=== PATIENT | female | born 1990 | race Hispanic/Latino ===

== ENCOUNTER 2021-10-23 19:36 | Observation (INO) | payer OTHER, SELFPAY ==
--- NOTE | ~2021-10-23 | CT_ITS ---
EXAMINATION: CT brain wo con EXAM DATE: 10/24/2021 02:07 INDICATION: New onset facial drooping. TECHNIQUE: Spiral CT of the head was performed without contrast. Axial, coronal and sagittal images were reviewed. The dose-length product (DLP) for this examination was 605.33 mGy-cm. The exposure w as tailored according to patient size, and iterative reconstruction (ASIR) was used as additional dos e reduction technique. Comparison is made to prior examination from 10/23/2021. FINDINGS: There is no acute intraparenchymal hemorrhage. No evidence of intraparenchymal brain mass lesion. No evidence of acute infarction. There is no mass effect or midline shift. The ventricles are normal in size. There are no extra-axial collections. There are no acute calvarial fractures. T he orbits are unremarkable. Soft tissue is unremarkable. The visualized sinuses and mastoid air pieter ls are well aerated. IMPRESSION: No acute intracranial findings. Reviewed, dictated and finalized at location B. EMS TEST ANALYST
--- NOTE | ~2021-10-23 | MR_ITS ---
EXAMINATION: MR brain/brain stem wo con EXAM DATE: 10/24/2021 08:12 INDICATION: Speech difficulty, headache. Left-sided facial droop, left posterior headache. 33 weeks p regnant. TECHNIQUE: Magnetic resonance imaging (MRI) of the brain/brain stem obtained without contrast. Perlitaitt al T1, axial diffusion, gradient echo (T2*), T1, T2, FLAIR sequences obtained. There is no prior st udy for comparison. FINDINGS: There are no areas of restricted diffusion to suggest acute infarction. There is no acute hemorrhage seen on the T2*, a hemosiderin sensitive sequence. No intraparenchymal brain mass. The ve ntricles are normal in size. There are no extra-axial collections. Flow voids are seen in the cereb ral arteries on the T2-weighted sequences consistent with their expected patency. The orbits are unr emarkable. Soft tissue is unremarkable. IMPRESSION: Normal brain MRI examination. Reviewed, dictated and finalized at location B. N OPERATOR
--- NOTE | ~2021-10-23 | CT_ITS ---
EXAMINATION: CT brain wo con DATE: 10/23/2021 19:59 INDICATION: Speech deficit. TECHNIQUE: Computed tomography (CT) of the head was performed without intravenous contrast. The mA wa s adjusted according to patient size. Iterative reconstruction technique was employed. The dose-lengt h product was 605.33 mGy-cm. COMPARISON: None FINDINGS: There is no intracranial hemorrhage, acute infarction, or abnormal intracranial mass lesion . The ventricles are normal in size. There is mild mucosal thickening in the paranasal sinuses. The o rbits are normal. The mastoid air cells are normal. IMPRESSION: 1. Normal brain. Reviewed, dictated and finalized at location A. T LINE SUPERVISOR IMPRESSION: 1. Normal brain.
--- NOTE | ~2021-10-23 | CT_ITS ---
EXAMINATION: CTA chest PE protocol EXAM DATE: 10/24/2021 04:49 INDICATION: Central chest pain. TECHNIQUE: Spiral CTA of the chest (pulmonary arteries) was performed with 100 cc Omnipaque 350 intr avenous contrast injection. Images were acquired during the pulmonary arterial phase. Coronal maxi mum intensity projection 3D-reconstructions were created by the technologist on dedicated workstation . Axial, coronal and sagittal reformatted images were reviewed. The dose-length product (DLP) for t his examination was 649.80 mGy-cm. The exposure was tailored according to patient size (auto mA exp osure control), and iterative reconstruction (ASIR) was used as additional dose reduction technique. There is no prior study for comparison. FINDINGS: Pulmonary arteries are well opacified and without intraluminal filling defects. No thora cic aortic dissection. The lungs are clear. There are no pleural or pericardial effusions. Trach eobronchial tree is patent. There is no mediastinal, hilar or axillary lymphadenopathy. There is no pneumothorax. Heart normal in size. No evidence of coronary arterial calcification. Upper abd omen is unremarkable. There is thoracic spondylosis without osteoblastic or osteolytic lesions iden tified. IMPRESSION: 1. Unremarkable CT pulmonary exam. Reviewed, dictated and finalized at location B. T WASHER
--- NOTE | 2021-10-23 19:47 | ECG_ITS ---
Measurements Intervals [place] Rate: 76 P: 8 HI: 153 QRS: 37 QRSD: 105 T: 43 QT: 373 QTc: 420 Interpretive Statements SINUS RHYTHM EARLY PRECORDIAL R/S TRANSITION BORDERLINE ECG Electronically Signed On 10-24-2021 6:26:44 FACE PAINTER by Jese Prakash D.O.
[2021-10-23 20:17] VITALS: BP 114/65; PULSE 91; RESP 16; TEMP 36.3; O2SAT 100
[2021-10-23 20:30] VITALS: BP 106/64; PULSE 96; RESP 16; O2SAT 100
--- NOTE | 2021-10-23 20:34 | ED.GENADULT ---
HPI - General Adult General Chief complaint: Neuro Symptoms/Deficit Stated complaint: headache, difficulty speaking Time Seen by Provider: 10/23/21 19:47 Source: patient and RN notes reviewed History of Present Illness HPI narrative: Patient is a 31 y/o female complaining of left occipital headache starting about 10:00 PM last night. She describes her headache as throbbing and rates it as 8/10. There is no alleviating or exacerbating factor. She has no vomiting, neck pain, focal weakness or numbness. She is able to ambulate. She has some mouth numbness and difficulty with speaking which started about 1:00 PM today. Of note, she is about 33 week . Patient is non Israeli speaking and daughter provided translation. Related Data Allergies Allergy/AdvReac Type Severity Reaction Status Date / Time No Known Allergies Allergy Unverified 07/13/16 02:59 Review of Systems Constitutional: Constitutional: Denies chills, Denies fever(s), Reports headache(s) and Denies weakness Eyes: Eyes: Denies blurry vision ENT: Reports headache(s) and Denies neck pain Cardiovascular: Cardiovascular: Denies chest pain and Denies dyspnea Respiratory: Respiratory: Denies cough and Denies dyspnea Gastrointestinal: Gastrointestinal: Denies abdominal pain, Denies diarrhea, Denies nausea and Denies vomiting Genitourinary: Genitourinary: Denies hematuria and Denies dysuria Musculoskeletal: Musculoskeletal: Denies back pain and Denies neck pain Neurologic: Reports Abnormal speech present, Reports headache(s), Reports numbness and Denies weakness Exam Const: General: no acute distress and well developed Orientation/consciousness: oriented to person, oriented to place, oriented to time and patient oriented x3 HENMT: Head: normocephalic Ears: external ears normal General nose exam: Normal external nose present Eyes: General: appearance normal, both eyes and all related structures Conjunctivae: conjunctivae normal Neck: Neck: normal visual inspection and full ROM Chest: Chest palpation & inspection: normal inspection of the chest and no tenderness Resp: Effort & Inspection: normal respiratory effort Auscultation: clear to auscultation bilaterally Cardio: Rate: regular rate Rhythm: regular rhythm GI: GI Palp: No abdominal tenderness and Yes Soft to palpation Skin: General skin exam: normal color and turgor normal Neuro: General: oriented to person, oriented to place, oriented to time and patient oriented x3 Cognition (Neuro): normal cognition Extrem: General: normal to inspection, full ROM and no pedal edema Psych: Appearance: grossly normal Mental Status: mental status grossly normal Affect: normal affect Course Reevaluation(s) Reevaluation #1: Rechecked. Patient still complains of headache and difficulty with speech. Date: 10/23/21 Time: 22:09 Consultations Consultation #1: Discussed with Dr. Ratliff, who agrees to admit. Date: 10/23/21 Time: 22:15 Vital Signs Vital signs: Vital Signs Temperature 36.3 C L 10/23/21 20:17 Pulse Rate 91 10/23/21 20:17 Respiratory Rate 16 10/23/21 20:17 Blood Pressure 114/65 10/23/21 20:17 Pulse Oximetry 100 10/23/21 20:17 Temperature 36.7 C 10/24/21 00:45 Pulse Rate 84 10/24/21 00:53 Respiratory Rate 18 10/24/21 00:45 Blood Pressure 124/77 10/24/21 00:53 Pulse Oximetry 100 10/24/21 01:46 Medical Decision Making MDM Narrative Medical decision making narrative: Stroke is considered as possible cause of patient's symptoms. However, she is not a candidate for tPA due to LKW greater than 4.5 hours and . CTA is not done due to low NIHSS. Vital Signs Vital Signs: Vital Signs Temperature 36.3 C L 10/23/21 20:17 Pulse Rate 91 10/23/21 20:17 Respiratory Rate 16 10/23/21 20:17 Blood Pressure 114/65 10/23/21 20:17 Pulse Oximetry 100 10/23/21 20:17 Temperature 36.7 C 10/24/21 00:45 Pulse Rate 84 10/24/21 00:53 Respiratory Rat
[2021-10-23 20:43] LABS: Basophils Percent Auto 0.3 % (0.2-1.2); Eosinophils Absolute Auto 0.2 K/mm3 (0-0.3); Eosinophils Percent Auto 2.1 % (0-4.4); Hematocrit 33.2 % (37.0-47.0); Hemoglobin 10.9 g/dL (12.0-15.0); Immature Granulocyte Absolute 0.05 K/mm3 (0.00-0.031); Immature Granulocyte Percent A 0.7 % (0-0.5); Lymphocytes Absolute Auto 1.36 K/mm3 (0.9-3.2); Lymphocytes Percent Auto 19.3 % (18.3-44.2); Mean Corpuscular HGB Conc 32.8 g/dl (32-36); Mean Corpuscular Hemoglobin 28.1 pg (26-34); Mean Corpuscular Volume 85.6 fl (80-100); Mean Platelet Volume 10.8 fl (7.4-10.4); Monocytes Absolute Auto 0.8 K/mm3 (0.1-0.6); Monocytes Percent Auto 11.2 % (2.6-8.5); Neutrophils Absolute Auto 4.7 K/mm3 (1.3-6.7); Neutrophils Percent Auto 66.4 % (45.5-73.1); Platelet Count Result 289 k/mm3 (150-375); Red Blood Count 3.88 M/mm3 (4.2-5.4); Red Cell Distribution Width 14.2 % (11.5-14.5); White Blood Count 7.1 K/mm3 (4.5-10.0)
[2021-10-23 20:53] LABS: Alanine Aminotransferase 49 U/L (4-35); Albumin Level 3.7 g/dL (3.5-5.1); Alkaline Phosphatase 131 U/L (38-126); Anion Gap 8 mmol/L (8-16); Aspartate Amino Transferase 83 U/L (14-36); Bilirubin,Total 0.6 mg/dL (0.2-1.3); Blood Urea Nitrogen 8 mg/dL (7-17); Calcium 9.5 mg/dL (8.4-10.2); Carbon Dioxide 21 mmol/L (22-30); Chloride 108 mmol/L (98-107); Estimated Glomerular Filt Rate > 60; Glucose 96 mg/dL (65-110); Potassium 3.6 mmol/L (3.4-5.0); Sodium 137 mmol/L (137-145)
[2021-10-23 20:54] LABS: INR 0.9; Prothrombin Time 12.4 Seconds (11.1-14.7)
[2021-10-23 20:55] LABS: Partial Thromboplastin Time 28.3 SECONDS (22.3-36.8)
[2021-10-23] MEDS: ACETAMINOPHEN/BUTALBITAL/CAFFEINE 325-50-40 MG TABLET (FIORICET) 1 TAB PO (21:20)
[2021-10-23 21:30] VITALS: BP 99/50; PULSE 83; RESP 16; O2SAT 99
[2021-10-23 21:43] LABS: Add Urine Microscopic? YES; Amorphous Sediment Urine Few; Appearance Urine Cloudy (Clear); Bacteria Urine Trace /hpf; Bilirubin Urine Negative (Negative); Blood Urine Negative (Negative); Calcium Oxalate Crystals Urine Present /hpf; Color Urine Yellow (Yellow); Glucose Urine UA Negative (Negative); Ketones Urine Negative (Negative); Leukocyte Esterase Ur Trace LEU/UL (Negative); Mucus Urine Rare /lpf; Nitrate Urine Negative (Negative); Protein Urine 1+ mg/dL (Negative); Specific Grav Ur 1.017 (1.001-1.035); Squamous Epithelial Cell Urine Many /hpf (Few)
[2021-10-23 22:22] VITALS: BP 110/63; PULSE 72; RESP 16; TEMP 36.3; O2SAT 98
[2021-10-23 22:51] LABS: EDCOVIDSCREEN Negative (Negative)
[2021-10-23 23:18] VITALS: BP 107/61; PULSE 73
[2021-10-23 23:31] VITALS: BP 106/59; PULSE 74
[2021-10-24] VITALS (112 sets, daily range): BP systolic 73–124; BP diastolic 35–83; PULSE 77–109; RESP 16–20; TEMP 36.5–37.1; O2SAT 95–100; BMI 41.6
[2021-10-24] MEDS: LACTATED RINGERS 1,000 ML 75 ML IV CONT ×2 (00:12→11:57)
[2021-10-24] MEDS: MAGNESIUM SULF 4 GM/WATER100ML 4 GM/100 ML BAG IVPB (00:16)
[2021-10-24] MEDS: SUMAtriptan SUCCINATE 25 MG TABLET 100 MG PO (00:19)
[2021-10-24] MEDS: MAGNESIUM SULF 20GM/WATER500ML 500 ML 50 MG IV CONT ×2 (00:48→11:57)
--- NOTE | 2021-10-24 01:35 | ECG_ITS ---
Measurements Intervals [place] Rate: 84 P: 20 IA: 148 QRS: 31 QRSD: 100 T: 37 QT: 384 QTc: 456 Interpretive Statements SINUS RHYTHM NORMAL ECG Electronically Signed On 10-24-2021 6:31:55 SHIRT OPERATOR by Jese Prakash D.O.
--- NOTE | 2021-10-24 01:46 | PC.NURSE ---
0140- called per 's orders for consult. Informed pt came in thru the ER last night for c/o headache. Pt has received fioricet and imitrex for headache without any relief. Pt was started on magnesium sulfate and since c/o chest pain, numbness around the mouth which pt states she did have in the ER, pt states she feels like she can not close her left eye all the way and has an uneven smile. Orders received for stat repeat CT of the brain. Informed troponin levels are being drawn and stat EKG ordered by .
[2021-10-24 01:50] LABS: D Dimer 1.64 ug/mL (<0.48)
[2021-10-24 02:12] LABS: Troponin I < 0.012 ng/mL (0.000-0.034)
--- NOTE | 2021-10-24 02:16 | PC.NURSE ---
0130- called,informed pt is now c/o not being able to close her left eye all the way. Pt's smile is uneven, right side rises and left side does not move. Orders received to draw troponin levels, obtain stat EKG, and consult hospitalist.
--- NOTE | 2021-10-24 02:51 | PM.IMCN ---
Assessment and Plan Assessment and plan (1) Headache: Qualifiers: Headache chronicity pattern: unspecified pattern Headache type: unspecified Intractability: not intractable Qualified Code(s): R51.9 - Headache, unspecified Code(s): R51.9 - Headache, unspecified Status: Acute (2) Difficulty with speech: Code(s): R47.9 - Unspecified speech disturbances Status: Acute (3) Left-sided Dietrich's palsy: Code(s): G51.0 - Dietrich's palsy Status: Acute (4) Chest pain: Code(s): R07.9 - Chest pain, unspecified Status: Acute (5) Elevated d-dimer: Code(s): R79.89 - Other specified abnormal findings of blood chemistry Status: Acute (6) Migraine: Code(s): G43.909 - Migraine, unspecified, not intractable, without status migrainosus Status: Acute Additional Plan # headache occipital in origin different from her usual migraine headaches. However suspect migraine related headache given Fioricet and Imitrex with some relieve. Will order Imitrex 50 q.6 hours p.r.n.. Morphine IV p.r.n. for severe headache # facial drooping CT head is negative. Clinical examination suggestive of acute Dietrich's palsy history suggests symptoms started since she has 1-2 days. # left-sided acute Dietrich's palsy will start her on steroid prednisone 60 mg daily along with acyclovir 400 mg 5 times daily. Duration of symptoms has been 1-2 days. MRI brain has been ordered in place which will be done tomorrow. Will also consult Neurology for any further recommendation # chest pain unclear etiology. EKG done which is within normal limits. Troponin came back negative. No personal or family history of premature coronary artery disease. Her D-dimer did come back elevated and with being a thrombophilic condition, possibility of PE remains. Discussed this finding with the attending physician and decision made to do a CTA to rule this out. # elevated D-dimer see above # history of migraine in the past not on any medication previously # 33 weeks Thanks for the consultation. Hospitalist team will continue to follow. HPI Data of Consult Consult date: 10/24/21 Requesting Physician: Luis Ratliff MD Primary Care Provider: René Alexis, COUNTER WEIGHER Consult Narrative Narrative: Rossi Sutton is a 31 year old female Who presents to the ED yesterday with left-sided occipital headache which started day before yesterday at night. She describes her headache as severe and rated 10 x 10 in the beginning radiating forward to her left side of her head and is throbbing in quality. She tried to sleep that night however was not able to sleep because of the ED. she denies having any nausea or vomiting or any visual changes with. She did not take any medication to alleviate her pain. On Friday continued to have the pain and hence came to the ER for evaluation in the evening. She states that along with the pain she was also having some numbness and tingling in her facial area which she describes it to be again later in the evening on Friday. Most of the history is interpreted by her daughter who is at the bedside As she on the speaks Indonesian . In the ED she was evaluated with a CT head which came back negative. Of note she is 33 weeks and hence was admitted to the labor and delivery for further monitoring. While she was in the labor and delivery she had worsening of her headache for which she received 1 dose of Fioricet followed by 1 dose of Imitrex. She also complained of having chest pain which is in the upper retrosternal area for which an EKG was done which showed normal sinus rhythm. This was further evaluated with of blood test of troponin which came back negative along with D-dimer which came back elevated she denies any ongoing leg swelling. Her vitals has been stable throughout this. With no hypoxia or tachycardia. She does report history of migraines in the past but the quality
[2021-10-24] MEDS: ACYCLOVIR 400 MG TABLET PO ×6 (03:23→20:47)
[2021-10-24 05:34] LABS: Basophils Percent Auto 0.1 % (0.2-1.2); Eosinophils Absolute Auto 0.1 K/mm3 (0-0.3); Eosinophils Percent Auto 1.6 % (0-4.4); Hematocrit 32.7 % (37.0-47.0); Hemoglobin 10.8 g/dL (12.0-15.0); Immature Granulocyte Absolute 0.05 K/mm3 (0.00-0.031); Immature Granulocyte Percent A 0.7 % (0-0.5); Lymphocytes Absolute Auto 1.38 K/mm3 (0.9-3.2); Lymphocytes Percent Auto 18.9 % (18.3-44.2); Mean Corpuscular Hemoglobin 27.6 pg (26-34); Mean Corpuscular Volume 83.6 fl (80-100); Mean Platelet Volume 10.6 fl (7.4-10.4); Monocytes Absolute Auto 0.5 K/mm3 (0.1-0.6); Monocytes Percent Auto 6.4 % (2.6-8.5); Neutrophils Absolute Auto 5.3 K/mm3 (1.3-6.7); Neutrophils Percent Auto 72.3 % (45.5-73.1); Platelet Count Result 263 k/mm3 (150-375); Red Blood Count 3.91 M/mm3 (4.2-5.4); White Blood Count 7.3 K/mm3 (4.5-10.0)
[2021-10-24 05:44] LABS: Alanine Aminotransferase 51 U/L (4-35); Albumin Level 3.3 g/dL (3.5-5.1); Alkaline Phosphatase 142 U/L (38-126); Anion Gap 10 mmol/L (8-16); Aspartate Amino Transferase 77 U/L (14-36); Bilirubin,Total 0.6 mg/dL (0.2-1.3); Blood Urea Nitrogen 6 mg/dL (7-17); Calcium 8.2 mg/dL (8.4-10.2); Carbon Dioxide 19 mmol/L (22-30); Chloride 107 mmol/L (98-107); Estimated CRCL calculation 197 ml/min; Estimated Glomerular Filt Rate > 60; Glucose 100 mg/dL (65-110); Potassium 3.5 mmol/L (3.4-5.0); Sodium 136 mmol/L (137-145); Uric Acid 4.3 mg/dL (2.5-7.5)
[2021-10-24] MEDS: SUMAtriptan SUCCINATE 25 MG TABLET 50 MG PO ×3 (06:39→20:47)
[2021-10-24] MEDS: predniSONE 20 MG TABLET 60 MG PO (08:58)
--- NOTE | 2021-10-24 09:16 | PM.IMHP ---
H&P: HPI History of Present Illness Date/Time: 10/24/21 09:16 31 y/o at 33 weeks gestation with a 2 day history of headache. She has a history of migraine. Good movement, no contractions, no abdominal pain. Developed left sided facial droop last night. The clinical picture was confused at the time of her admission. She was admitted to L&D for possible preeclampsia, started on Magnesium sulfate. However, she was then worked up for possible stroke. Hospitalist was consulted. CT of head and, most recently, MRI of head have been unremarkable. Had some chest tightness, and CT of chest was normal. Now her headache has resolved and her left facial droop has become more pronounced. Looks much more likely simply to represent a Dietrich's Palsy now. Chief Complaint: Headache Review of Systems Review of Systems: All systems reviewed & are unremarkable except as noted in HPI and below PMFSH Past Medical History Medical History Migraine Meds Home Medications and Allergies Home Medications Medication Instructions Recorded Confirmed Type No Home Medications 10/24/21 10/24/21 History Allergies Allergy/AdvReac Type Severity Reaction Status Date / Time No Known Allergies Allergy Unverified 07/13/16 02:59 Vital Signs Vital Signs - 24 hr 10/23/21 20:17 10/23/21 20:30 10/23/21 21:30 Temperature 36.3 C L Pulse Rate 91 96 83 Respiratory Rate 16 16 16 Blood Pressure 114/65 106/64 99/50 L Pulse Oximetry 100 100 99 10/23/21 22:22 10/23/21 23:18 10/23/21 23:31 Temperature 36.3 C L Pulse Rate 72 73 74 Respiratory Rate 16 Blood Pressure 110/63 107/61 106/59 L Pulse Oximetry 98 10/24/21 00:16 10/24/21 00:17 10/24/21 00:23 Temperature 36.5 C Pulse Rate 77 Respiratory Rate 16 Blood Pressure 102/41 L Pulse Oximetry 97 10/24/21 00:24 10/24/21 00:25 10/24/21 00:26 Temperature 36.7 C Pulse Rate 102 H 78 Respiratory Rate 20 Blood Pressure 83/67 L 106/59 L Pulse Oximetry 10/24/21 00:28 10/24/21 00:30 10/24/21 00:33 Temperature Pulse Rate 81 Respiratory Rate Blood Pressure 111/62 Pulse Oximetry 98 97 10/24/21 00:36 10/24/21 00:38 10/24/21 00:41 Temperature Pulse Rate 83 89 Respiratory Rate Blood Pressure 110/63 105/59 L Pulse Oximetry 98 10/24/21 00:43 10/24/21 00:45 10/24/21 00:46 Temperature 36.7 C Pulse Rate 83 Respiratory Rate 18 Blood Pressure 106/83 Pulse Oximetry 96 10/24/21 00:48 10/24/21 00:53 10/24/21 00:58 Temperature Pulse Rate 84 Respiratory Rate Blood Pressure 124/77 Pulse Oximetry 97 97 96 10/24/21 01:00 10/24/21 01:03 10/24/21 01:08 Temperature 36.8 C Pulse Rate Respiratory Rate 18 Blood Pressure Pulse Oximetry 97 95 10/24/21 01:13 10/24/21 01:14 10/24/21 01:19 Temperature Pulse Rate Respiratory Rate Blood Pressure Pulse Oximetry 96 99 97 10/24/21 01:24 10/24/21 01:29 10/24/21 01:30 Temperature Pulse Rate Respiratory Rate 18 Blood Pressure Pulse Oximetry 98 98 10/24/21 01:38 10/24/21 01:43 10/24/21 01:44 Temperature Pulse Rate Respiratory Rate Blood Pressure Pulse Oximetry 97 100 100 10/24/21 01:45 10/24/21 01:46 10/24/21 02:08 Temperature Pulse Rate Respiratory Rate Blood Pressure Pulse Oximetry 100 100 100 10/24/21 02:10 10/24/21 02:13 10/24/21 02:16 Temperature Pulse Rate 87 86 Respiratory Rate Blood Pressure 116/46 L 120/64 Pulse Oximetry 100 10/24/21 02:18 10/24/21 02:23 10/24/21 02:28 Temperature Pulse Rate Respiratory Rate Blood Pressure Pulse Oximetry 100 100 99 10/24/21 02:31 10/24/21 02:33 10/24/21 02:38 Temperature Pulse Rate 86 Respiratory Rate Blood Pressure 114/59 L Pulse Oximetry 100 99 10/24/21 02:43 10/24/21 02:46 10/24/21 02:48 Temperature
--- NOTE | 2021-10-24 11:32 | WPDNEURCNPN ---
Assessment and Plan Additional Plan 1. 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, routine CBC is normal but her hepatic enzymes are elevated the blood sugar is a 96 an MRI of the brain is negative psoas the chest CTA and she has already been started on prednisone in addition to acyclovir which will be continued as such Consult date: 10/24/21 HPI: Rossi Sutton is a 31 year old female 4 para 3 at 33 weeks of gestation with 2 days history of headache that is migraine developed the left-sided facial droop and neuro consultation was obtained for that particular reason patient has not been on any specific medication prior to the hospitalization and noted Марина afebrile, she does have ongoing history of not intractable migraine. Her headaches are usually located in the occipital area neuro consultation was obtained because of the left-sided facial droop Review of Systems Review of Systems: All systems reviewed & are unremarkable except as noted in HPI and below PMFSH Past Medical History Medical History Migraine Meds Home Medications and Allergies Home Medications Medication Instructions Recorded Confirmed Type No Home Medications 10/24/21 10/24/21 History Allergies Allergy/AdvReac Type Severity Reaction Status Date / Time No Known Allergies Allergy Unverified 07/13/16 02:59 Vital Signs Vital Signs - 24 hr 10/23/21 20:17 10/23/21 20:30 10/23/21 21:30 Temperature 36.3 C L Pulse Rate 91 96 83 Respiratory Rate 16 16 16 Blood Pressure 114/65 106/64 99/50 L Pulse Oximetry 100 100 99 10/23/21 22:22 10/23/21 23:18 10/23/21 23:31 Temperature 36.3 C L Pulse Rate 72 73 74 Respiratory Rate 16 Blood Pressure 110/63 107/61 106/59 L Pulse Oximetry 98 10/24/21 00:16 10/24/21 00:17 10/24/21 00:23 Temperature 36.5 C Pulse Rate 77 Respiratory Rate 16 Blood Pressure 102/41 L Pulse Oximetry 97 10/24/21 00:24 10/24/21 00:25 10/24/21 00:26 Temperature 36.7 C Pulse Rate 102 H 78 Respiratory Rate 20 Blood Pressure 83/67 L 106/59 L Pulse Oximetry 10/24/21 00:28 10/24/21 00:30 10/24/21 00:33 Temperature Pulse Rate 81 Respiratory Rate Blood Pressure 111/62 Pulse Oximetry 98 97 10/24/21 00:36 10/24/21 00:38 10/24/21 00:41 Temperature Pulse Rate 83 89 Respiratory Rate Blood Pressure 110/63 105/59 L Pulse Oximetry 98 10/24/21 00:43 10/24/21 00:45 10/24/21 00:46 Temperature 36.7 C Pulse Rate 83 Respiratory Rate 18 Blood Pressure 106/83 Pulse Oximetry 96 10/24/21 00:48 10/24/21 00:53 10/24/21 00:58 Temperature Pulse Rate 84 Respiratory Rate Blood Pressure 124/77 Pulse Oximetry 97 97 96 10/24/21 01:00 10/24/21 01:03 10/24/21 01:08 Temperature 36.8 C Pulse Rate Respiratory Rate 18 Blood Pressure Pulse Oximetry 97 95 10/24/21 01:13 10/24/21 01:14 10/24/21 01:19 Temperature Pulse Rate Respiratory Rate Blood Pressure Pulse Oximetry 96 99 97 10/24/21 01:24 10/24/21 01:29 10/24/21 01:30 Temperature Pulse Rate Respiratory Rate 18 Blood Pressure Pulse Oximetry 98 98 10/24/21 01:38 10/24/21 01:43 10/24/21 01:44 Temperature Pulse Rate Respiratory Rate Blood Pressure Pulse Oximetry 97 100 100 10/24/21 01:45 10/24/21 01:46 10/24/21 02:08 Temperature Pulse Rate Respiratory Rate Blood Pressure Pulse Oximetry 100 100 100 10/24/21 02:10 10/24/21 02:13 10/24/21 02:16 Temperature Pulse Rate 87 86 Respiratory Rate Blood Pressure 116/46 L 120/64 Pulse Oximetry 100 10/24/21 02:18 10/24/21 02:23 10/24/21 02:28 Temperature Pulse Rate Respiratory Rate Blood Pressure Pulse Oximetry 100 100 99 10/24/21 02:31 10/24/21 02:33 10/24/21 02:38 Temperature Pulse Rate 86 Respiratory Rate Blood Pressure 114/5
[2021-10-25 04:23] LABS: Collection Time Urine 24 HOURS
[2021-10-25 04:33] LABS: Creatinine Urine 37.6 mg/dL; Patient Weight 242 Lbs
[2021-10-25 04:52] LABS: Total Volume 24 Hour Urine 3000 ml
[2021-10-25 05:00] LABS: Specific Gravity Ur 1.016
[2021-10-25] MEDS: SUMAtriptan SUCCINATE 25 MG TABLET 50 MG PO ×2 (05:19→08:51)
[2021-10-25 05:22] VITALS: BP 101/48; PULSE 76
[2021-10-25 06:00] LABS: Creatinine Clearance Urine 160.3 ml/min (75-125); Total Volume 24 Hour Urine 3000 ml
[2021-10-25 06:10] LABS: Total Protein Urine Random 24 mg/dL
[2021-10-25 06:18] LABS: Total Protein Urine 24 Hr 720 mg/24hr (28-141)
[2021-10-25 06:20] LABS: Basophils Percent Auto 0.3 % (0.2-1.2); Eosinophils Percent Auto 0.3 % (0-4.4); Hematocrit 33.8 % (37.0-47.0); Hemoglobin 10.7 g/dL (12.0-15.0); Immature Granulocyte Absolute 0.07 K/mm3 (0.00-0.031); Immature Granulocyte Percent A 0.9 % (0-0.5); Lymphocytes Absolute Auto 1.07 K/mm3 (0.9-3.2); Lymphocytes Percent Auto 13.5 % (18.3-44.2); Mean Corpuscular HGB Conc 31.7 g/dl (32-36); Mean Corpuscular Hemoglobin 27.6 pg (26-34); Mean Corpuscular Volume 87.3 fl (80-100); Mean Platelet Volume 10.8 fl (7.4-10.4); Monocytes Absolute Auto 0.5 K/mm3 (0.1-0.6); Monocytes Percent Auto 6.6 % (2.6-8.5); Neutrophils Absolute Auto 6.2 K/mm3 (1.3-6.7); Neutrophils Percent Auto 78.4 % (45.5-73.1); Platelet Count Result 281 k/mm3 (150-375); Red Blood Count 3.87 M/mm3 (4.2-5.4); Red Cell Distribution Width 14.4 % (11.5-14.5); White Blood Count 7.9 K/mm3 (4.5-10.0)
[2021-10-25 06:30] VITALS: RESP 18; TEMP 36.2
[2021-10-25 06:31] VITALS: BP 105/51; PULSE 68
[2021-10-25 06:36] LABS: Alanine Aminotransferase 79 U/L (4-35); Albumin Level 3.4 g/dL (3.5-5.1); Alkaline Phosphatase 132 U/L (38-126); Anion Gap 4 mmol/L (8-16); Aspartate Amino Transferase 118 U/L (14-36); Bilirubin,Total 0.6 mg/dL (0.2-1.3); Blood Urea Nitrogen 4 mg/dL (7-17); Calcium 8.2 mg/dL (8.4-10.2); Carbon Dioxide 22 mmol/L (22-30); Chloride 110 mmol/L (98-107); Estimated CRCL calculation 197 ml/min; Estimated Glomerular Filt Rate > 60; Glucose 122 mg/dL (65-110); Potassium 3.6 mmol/L (3.4-5.0); Sodium 136 mmol/L (137-145); Uric Acid 3.7 mg/dL (2.5-7.5)
[2021-10-25] MEDS: ACYCLOVIR 400 MG TABLET PO ×2 (08:51→12:24)
[2021-10-25] MEDS: predniSONE 20 MG TABLET 60 MG PO (08:51)
[2021-10-25 10:39] VITALS: BP 94/24; PULSE 83
--- NOTE | 2021-10-25 13:14 | PM.OBPNVD ---
OB - PN: Subj Subjective Date/time seen: 10/25/21 13:14 Headache has localized to left ear, neck, jaw and face. No swelling. No abdominal pain. Good movement. Imitrex does seem to help head. OB - PN: Obj Data Labs CBC & Chem 7: 10/25/21 05:01 10/25/21 05:01 Labs: Laboratory Results - last 24 hr 10/25/21 10/25/21 10/25/21 01:25 01:26 05:01 WBC 7.9 RBC 3.87 L Hgb 10.7 L Hct 33.8 L MCV 87.3 MCH 27.6 MCHC 31.7 L RDW 14.4 Plt Count 281 MPV 10.8 H Immature Gran % (Auto) 0.9 H Neut % (Auto) 78.4 H Lymph % (Auto) 13.5 L Emmet % (Auto) 6.6 Eos % (Auto) 0.3 Baso % (Auto) 0.3 Lymph # (Auto) 1.07 Emmet # (Auto) 0.5 Eos # (Auto) 0.0 Baso # (Auto) 0.0 Abs Immat Gran (auto) 0.07 H Absolute Neuts (auto) 6.2 Absolute Nucleated RBC 0.0 Nucleated RBC % 0.0 Sodium Potassium Chloride Carbon Dioxide Anion Gap BUN Creatinine Estim Creat Clear Calc Estimated GFR Glucose Uric Acid Calcium Total Bilirubin AST ALT Alkaline Phosphatase Total Protein Albumin U Random Total Protein 24 Ur 24 Hour Volume 3000 3000 Urine Creatinine 37.6 Creatinine Clearance 160.3 H Ur Total Protein 24 Hr 720 H 10/25/21 05:01 WBC RBC Hgb Hct MCV MCH MCHC RDW Plt Count MPV Immature Gran % (Auto) Neut % (Auto) Lymph % (Auto) Emmet % (Auto) Eos % (Auto) Baso % (Auto) Lymph # (Auto) Emmet # (Auto) Eos # (Auto) Baso # (Auto) Abs Immat Gran (auto) Absolute Neuts (auto) Absolute Nucleated RBC Nucleated RBC % Sodium 136 L Potassium 3.6 Chloride 110 H Carbon Dioxide 22 Anion Gap 4 L BUN 4 L Creatinine 0.40 L Estim Creat Clear Calc 197 Estimated GFR > 60 Glucose 122 H Uric Acid 3.7 Calcium 8.2 L Total Bilirubin 0.6 AST 118 H ALT 79 H Alkaline Phosphatase 132 H Total Protein 6.0 L Albumin 3.4 L U Random Total Protein Ur 24 Hour Volume Urine Creatinine Creatinine Clearance Ur Total Protein 24 Hr OB - PN A/P Plan Comments: A: IUP at 33 weeks with Dietrich's palsy, also with mildly elevated transaminases and 24 hour urine protein. P: Home to finish acyclovir, prednisone. F/u office next week for blood work. Review of Systems Review of Systems: All systems reviewed & are unremarkable except as noted in HPI and below Exam Narrative: AVSS I/O OK ABD soft, nontender, gravid. NST reactive. TOCO: no contractions. EXT nontender, no edema.
[2021-10-25 13:35] VITALS: BP 82/44; PULSE 82
[2021-10-25 13:37] VITALS: BP 100/71; PULSE 86
--- NOTE | 2021-11-19 11:52 | PM.OBDSVD ---
DS: Admitting Diagnosis Discharge Date 10/25/21 Admitting Diagnosis Headache IUP at 33 weeks DS: Discharge Diagnosis Discharge Diagnosis (1) Left-sided Dietrich's palsy: Code(s): G51.0 - Dietrich's palsy Status: Acute (2) : Code(s): Z34.90 - Encounter for supervision of normal , unspecified, unspecified trimester Status: Acute OB - DS: Summary OB Procedures : NST and Other OB Procedures Intrapartum: Other OB Procedures: : None Discharge Plan Discharge Attending physician on discharge: Dejan Guido Consulting providers: Mehran Pace ; [place] Mills ; Titi Bauman ; Jese Prakash ; Donaldo Ang V. Discharging Clinician: Luis Ratliff Anticipated Discharge Date/Time: 10/25/21 14:30 Patient Disposition: Home, Self-Care Activity: as tolerated Diet: regular Discharge Instructions: OB ANTEPARTUM DISCHARGE INSTRUCTIONS This information is given to help you properly care for yourself at home after your discharge from the hospital. Follow these instructions until your doctor tells you otherwise. DIET: Eat Three Well Balanced Meals per Day Drink at Least Eight 8-Ounce Glasses of Caffeine-Free Beverages Daily ACTIVITY: As Tolerated RETURN TO LABOR AND DELIVERY IF YOU HAVE: Any Change In Baby's Normal Movement Pattern Any Leakage of Fluid More than 6 Contractions in an Hour Vaginal Bleeding Worsening Signs of Hypertension in as per Handout Additional Reasons to Return to Labor and Delivery: Contractions may feel like abdominal pain, tightening, cramping, pressure, back ache, or thigh ache. OTHER INSTRUCTIONS: Call or return if temperature above 100.4? F, increased abdominal pain, increased head or facial pain, visual change, or other problems. FOLLOW-UP CARE: Call Office and Make Appointment To see See Dr.Dalla Lobato next week Valuables released to patient or family? N/A Medications from home returned to patient? N/A I Acknowledge Receipt of and Understand the Above Instructions IF YOU HAVE ANY QUESTIONS REGARDING THESE INSTRUCTIONS, PLEASE CALL [phone]. IF PROBLEMS ARISE, CALL YOUR PROVIDER. IF EMERGENCY CARE IS NEEDED, [facility] EMERGENCY ROOM IS AVAILABLE 24 HOURS A DAY. Stand Alone Forms: General Discharge Information Follow-up/Referrals: Dalla-Rutland,Dejan J, MD [Physician] - 1 Week Discharge Medications: New sumatriptan succinate [Imitrex] 25 mg Tablet 50 mg PO Q6H PRN (Reason: migraine) Qty: 20 RF: 0 prednisone 20 mg Tablet 60 mg PO DAILY@0800 Qty: 3 RF: 0 acyclovir 400 mg Tablet 400 mg PO 5 TIMES DAILY Qty: 40 RF: 0 Date of admission: 10/23/21 22:16 Primary Care Provider: Reuben,René Admitting Provider: Luis Ratliff Attending physician on admission: Luis Ratliff Condition: Stable
== END 2021-10-25 14:23 | disposition home or self-care (01) ==
LOC: ANHED 20:15 → ANHOBPP 23:04
PROVIDERS: Admitting Provider Obstetrics & Gynecology; Emergency Provider Emergency Medicine; PCP Registered Nurse; Visit Provider Obstetrics & Gynecology
DX: O26.893 Other specified pregnancy related conditions, third trimester (principal); G43.909 Migraine, unspecified, not intractable, without status migrainosus; O99.353 Diseases of the nervous system complicating pregnancy, third trimester; G51.0 Bell's palsy; R29.701 NIHSS score 1; R47.9 Unspecified speech disturbances; R79.1 Abnormal coagulation profile; Z3A.33 33 weeks gestation of pregnancy; Z20.822 Contact with and (suspected) exposure to COVID-19
CPT/HCPCS: 36415; 70450; 70551; 71275; 80053; 81001; 81050; 82575; 84156; 84484; 84550; 85025; 85380; 85610; 85730; 87086; 87426; 93005; 96361; 96365; 96366; 96368; 99285; A9270; C9803; G0378; G0379; J3475; J7120; J7512; Q9967

== ENCOUNTER 2021-11-16 14:19 | Observation (INO) | payer OTHER, SELFPAY ==
[2021-11-16 14:46] VITALS: BP 112/54; PULSE 83
--- NOTE | 2021-12-09 11:07 | PM.OBTRLD ---
OB - Triage/Final Diagnosis Visit Information Comments/Additional reasons for admission: I have assessed the risk for this patient, Rossi Sutton, and determined that she would benefit from observation care. Final Diagnosis (1) Cramping affecting , antepartum: Code(s): O26.899 - Other specified related conditions, unspecified trimester; R10.9 - Unspecified abdominal pain Status: Acute
== END 2021-11-16 15:50 | disposition home or self-care (01) ==
PROVIDERS: Admitting Provider Obstetrics & Gynecology; PCP Registered Nurse; Visit Provider Obstetrics & Gynecology
DX: O26.893 Other specified pregnancy related conditions, third trimester (principal); R10.9 Unspecified abdominal pain; Z3A.36 36 weeks gestation of pregnancy
CPT/HCPCS: G0378; G0379

== ENCOUNTER 2021-12-17 04:53 | Inpatient (IN) | payer OTHER, SELFPAY ==
[2021-12-17] VITALS (73 sets, daily range): BP systolic 60–132; BP diastolic 34–112; PULSE 53–139; RESP 18; TEMP 36.8–37.1; O2SAT 100
--- NOTE | 2021-12-17 04:53 | LDADM ---
This patient, Rossi Sutton, was admitted to Labor/Delivery/Recovery 102 on 12/17/21 at 04:53. Plans for labor, pain management and were discussed with patient. Patient/family oriented to hospital policies and general routines including ID bracelet, bed and alarms, visiting hours, pain management, procedures, bathroom and other care routines, personal items, smoking policy, room service/diet and guest tray routines, security routines, and visiting hours. Patient/Family are encouraged to report perceived risks to care and to ask questions if they do not understand what they are told or what they should do. See OBIX for further documentation.
[2021-12-17 05:50] LABS: Basophils Percent Auto 0.6 % (0.2-1.2); Eosinophils Absolute Auto 0.1 K/mm3 (0-0.3); Eosinophils Percent Auto 1.3 % (0-4.4); Hematocrit 38.7 % (37.0-47.0); Hemoglobin 12.2 g/dL (12.0-15.0); Immature Granulocyte Absolute 0.07 K/mm3 (0.00-0.031); Lymphocytes Absolute Auto 1.58 K/mm3 (0.9-3.2); Lymphocytes Percent Auto 22.3 % (18.3-44.2); Mean Corpuscular HGB Conc 31.5 g/dl (32-36); Mean Corpuscular Hemoglobin 25.1 pg (26-34); Mean Corpuscular Volume 79.5 fl (80-100); Mean Platelet Volume 10.8 fl (7.4-10.4); Monocytes Absolute Auto 0.4 K/mm3 (0.1-0.6); Monocytes Percent Auto 5.9 % (2.6-8.5); Neutrophils Absolute Auto 4.9 K/mm3 (1.3-6.7); Neutrophils Percent Auto 68.9 % (45.5-73.1); Platelet Count Result 292 k/mm3 (150-375); Red Blood Count 4.87 M/mm3 (4.2-5.4); Red Cell Distribution Width 15.7 % (11.5-14.5); White Blood Count 7.1 K/mm3 (4.5-10.0)
[2021-12-17] MEDS: LACTATED RINGERS 1,000 ML 125 ML IV CONT ×4 (05:57→15:31)
[2021-12-17 05:58] LABS: Alanine Aminotransferase 48 U/L (4-35); Albumin Level 4.2 g/dL (3.5-5.1); Alkaline Phosphatase 293 U/L (38-126); Anion Gap 9 mmol/L (8-16); Aspartate Amino Transferase 97 U/L (14-36); Blood Urea Nitrogen 11 mg/dL (7-17); Calcium 9.3 mg/dL (8.4-10.2); Carbon Dioxide 21 mmol/L (22-30); Chloride 108 mmol/L (98-107); Estimated Glomerular Filt Rate > 60; Glucose 81 mg/dL (65-110); Potassium 3.6 mmol/L (3.4-5.0); Sodium 138 mmol/L (137-145); Uric Acid 5.7 mg/dL (2.5-7.5)
[2021-12-17] MEDS: AMPICILLIN 2 GM/NS 100 ML 2 GM/100 ML BAG IVPB (05:59)
[2021-12-17] MEDS: OXYTOCIN 30 UNITS/NS 500 ML 30 UNITS/500 ML BAG IV CONT (06:00)
--- NOTE | 2021-12-17 06:12 | WPDANESEPP ---
Anes - Eval Pre Procedure Procedure: labor epidural Date/Time: 12/17/21 06:12 Surgeon: dee dee hammond Pre Op Diagnosis: Induction of Labor Patient Data Age: 31 Gender: F Height: Weight: Last Vital Signs Pulse 69 12/17/21 06:01 BP 106/64 12/17/21 06:01 Allergies Allergy/AdvReac Type Severity Reaction Status Date / Time No Known Allergies Allergy Unverified 07/13/16 02:59 Home Medications Medication Instructions Recorded Confirmed Type acyclovir 400 mg PO 5 TIMES DAILY #40 tablet 10/25/21 Rx prednisone 60 mg PO DAILY@0800 #3 tablet 10/25/21 Rx sumatriptan succinate [Imitrex] 50 mg PO Q6H PRN #20 tablet 10/25/21 Rx Laboratory Tests 12/17/21 12/17/21 12/17/21 05:39 05:39 05:39 WBC 7.1 K/mm3 K/mm3 (4.5-10.0) RBC 4.87 M/mm3 M/mm3 (4.2-5.4) Hgb 12.2 g/dL g/dL (12.0-15.0) Hct 38.7 % % (37.0-47.0) MCV 79.5 fl L fl (80-100) MCH 25.1 pg L pg (26-34) MCHC 31.5 g/dl L g/dl (32-36) RDW 15.7 % H % (11.5-14.5) Plt Count 292 k/mm3 k/mm3 (150-375) MPV 10.8 fl H fl (7.4-10.4) Immature Gran % (Auto) 1.0 % H % (0-0.5) Neut % (Auto) 68.9 % % (45.5-73.1) Lymph % (Auto) 22.3 % % (18.3-44.2) [place] % (Auto) 5.9 % % (2.6-8.5) Eos % (Auto) 1.3 % % (0-4.4) Baso % (Auto) 0.6 % % (0.2-1.2) Lymph # (Auto) 1.58 K/mm3 K/mm3 (0.9-3.2) [place] # (Auto) 0.4 K/mm3 K/mm3 (0.1-0.6) Eos # (Auto) 0.1 K/mm3 K/mm3 (0-0.3) Baso # (Auto) 0.0 K/mm3 K/mm3 (0.0-0.1) Abs Immat Gran (auto) 0.07 K/mm3 H K/mm3 (0.00-0.031) Absolute Neuts (auto) 4.9 K/mm3 K/mm3 (1.3-6.7) Absolute Nucleated RBC 0.0 K/mm3 K/mm3 (0.0-0.012) Nucleated RBC % 0.0 % % (0.0-0.2) Sodium 138 mmol/L mmol/L (137-145) Potassium 3.6 mmol/L mmol/L (3.4-5.0) Chloride 108 mmol/L H mmol/L (98-107) Carbon Dioxide 21 mmol/L L mmol/L (22-30) Anion Gap 9 mmol/L mmol/L (8-16) BUN 11 mg/dL D mg/dL (7-17) Creatinine 0.50 mg/dL L mg/dL (0.7-1.0) Estim Creat Clear Calc Not Reportable Estimated GFR > 60 (59 - ) Glucose 81 mg/dL mg/dL (65-110) Uric Acid 5.7 mg/dL mg/dL (2.5-7.5) Calcium 9.3 mg/dL mg/dL (8.4-10.2) Total Bilirubin 1.0 mg/dL mg/dL (0.2-1.3) AST 97 U/L H U/L (14-36) ALT 48 U/L H U/L (4-35) Alkaline Phosphatase 293 U/L H U/L (38-126) Total Protein 8.0 g/dL g/dL (6.3-8.2) Albumin 4.2 g/dL g/dL (3.5-5.1) RPR Pending Patient hx anesthesia problems: none Family hx anesthesia problems: none Results Review: All pre-operative results and documents have been reviewed as part of the pre-operative evaluation. [facility] Past Medical History Medical History Migraine Family History Family History (Updated 11/16/21 @ 13:44 by Miri Middleton RN) Mother Hypertension Father Diabetes mellitus Sibling Breast cancer in female Sibling Breast cancer in female Social History Social History Substance use: never Spiritual care concerns: No Exam Day of Procedure 12/17/21 06:12
--- NOTE | 2021-12-17 07:40 | PM.IMHP ---
H&P: HPI History of Present Illness Date/Time: 12/17/21 07:40 31-year-old multiparous patient admitted at 40 and half weeks gestation for induction she is positive group B strep treated this edge. has otherwise been uncomplicated she has early ultrasound confirming dates. She also desires permanent sterilization and we reviewed that several times throughout the Chief Complaint: Induction of labor at term Review of Systems Review of Systems: All systems reviewed & are unremarkable except as noted in HPI and below PMFSH Past Medical History Medical History Migraine Family History Family History Mother Hypertension Father Diabetes mellitus Sibling Breast cancer in female Sibling Breast cancer in female Social History Social History Smoking status: Never smoker Second hand tobacco smoke exposure: No Substance use: never Spiritual care concerns: No Meds Home Medications and Allergies Allergies Allergy/AdvReac Type Severity Reaction Status Date / Time No Known Allergies Allergy Unverified 07/13/16 02:59 Vital Signs Vital Signs - 24 hr 12/17/21 05:30 12/17/21 05:46 12/17/21 06:01 Pulse Rate 76 69 69 Blood Pressure 110/62 97/55 L 106/64 12/17/21 06:16 12/17/21 06:31 Pulse Rate 71 70 Blood Pressure 111/69 102/65 Exam Const: General: no acute distress Eyes: General: appearance normal, both eyes and all related structures Neck: Neck: supple and no JVD Thyroid: thyroid normal Resp: Effort & Inspection: normal respiratory effort Auscultation: clear to auscultation bilaterally Cardio: Rate: regular rate Rhythm: regular rhythm GI: Inspection: non-distended GI Palp: Yes Soft to palpation, No Tenderness to palpation present (GI) and No Guarding due to palpation present (GI) Auscultation: normal bowel sounds : External Female Exam: normal external appearance Speculum Exam - Vagina: normal appearance of the vagina Speculum Exam - Cervix: normal appearance of the cervix (Cervix 2-3/50/-2 AROM with copious clear fluid. FHTs reassuring) Bimanual exam- vagina & uterus: enlarged Skin: General skin exam: no rashes or lesions noted Extrem: General: normal to inspection and no edema Psych: Mental Status: mental status grossly normal Affect: normal affect H&P: Results Labs Labs: Short CBC 12/17/21 Range/Units 05:39 WBC 7.1 (4.5-10.0) K/mm3 Hgb 12.2 (12.0-15.0) g/dL Hct 38.7 (37.0-47.0) % Plt Count 292 (150-375) k/mm3 BMP 12/17/21 05:39 Sodium 138 Potassium 3.6 Chloride 108 H Carbon Dioxide 21 L BUN 11 D Creatinine 0.50 L Glucose 81 Calcium 9.3 Liver Function 12/17/21 Range/Units 05:39 Total Bilirubin 1.0 (0.2-1.3) mg/dL AST 97 H (14-36) U/L ALT 48 H (4-35) U/L Alkaline Phosphatase 293 H (38-126) U/L Albumin 4.2 (3.5-5.1) g/dL Assessment and Plan Additional Plan Impression: Postdates positive group B strep and desires permanent sterilization Plan: Medical also labor. Spontaneous vaginal delivery is expected. Group B strep prophylaxis is undertaken. We do tubal ligation for which he understands to be permanent and irreversible
[2021-12-17] MEDS: AMPICILLIN 1 GM/NS 50 ML 1 GM/50 ML BAG IVPB ×3 (09:34→17:33)
--- NOTE | 2021-12-17 10:27 | PM.OBPNLAB ---
Pain Control Date/time seen: 12/17/21 10:27 Pain control: tolerating well Pelvic Exam Dilation (cm): 3 Effacement (%): 50 station: -2 Amniotic membrane status: Ruptured
--- NOTE | 2021-12-17 18:14 | PM.OBPRVD ---
OB - Delivery Note Procedure Delivery date: 12/17/21 Procedure: mil/gbs prophylaxisu Events: Elective Induction of Labor Induction method: AROM Delivery augmentation: Pitocin Delivery monitor: External FHT, Internal FHT and Internal Uterine Route of delivery: Episiotomy description: None Laceration Description: None Specimen: No Quantitative Blood Loss (ml): 59 Anesthesia type: Epidural Disposition: Floor [place] Baby Date of : 12/17/21 Time of : 18:07 Weeks of gestation at delivery: 40 gender: Male Weight (pounds): 9 Weight (ounces): 14 presentation: vertex position: Right Occiput Anterior Placenta delivery description: Spontaneous score one minute: 9 score five minutes: 9 Narrative: amp x 4
[2021-12-17] MEDS: OXYTOCIN 30 UNITS/NS 500 ML 30 UNITS/500 ML BAG 125 UNITS IV CONT (18:46)
[2021-12-17] MEDS: IBUPROFEN 600 MG TABLET PO (19:12)
[2021-12-17] MEDS: WITCH HAZEL 40 PADS 1 PAD TOPICAL (19:13)
[2021-12-17] MEDS: BENZOCAINE 20% AER SPR (*SP) 56 GM CAN 1 SPRAY TOPICAL (19:13)
--- NOTE | 2021-12-17 21:43 | OBPPTRN ---
Patient transferred to post room #283 via wheelchair. Support person present. Oriented to unit, room, information board, rooming in, admission packet and security measures via [employer]. Patient verbalizes understanding.
[2021-12-18 00:30] VITALS: BP 105/65; PULSE 70; RESP 18; TEMP 37.1
[2021-12-18] MEDS: IBUPROFEN 600 MG TABLET PO ×3 (03:54→23:37)
[2021-12-18 04:00] VITALS: BP 100/56; PULSE 80; RESP 18; TEMP 36.6
[2021-12-18 05:38] LABS: Hematocrit 29.2 % (37.0-47.0); Hemoglobin 9.2 g/dL (12.0-15.0)
[2021-12-18] MEDS: ACETAMINOPHEN 325 MG TABLET 650 MG PO ×2 (06:58→17:30)
[2021-12-18 07:30] VITALS: BP 94/42; PULSE 78; RESP 18; TEMP 36.1; O2SAT 100
--- NOTE | 2021-12-18 07:51 | PM.OBPNVD ---
OB - PN: Subj Subjective Date/time seen: 12/18/21 07:51 desires btl. will schedule tomorrow OB - PN: Obj Data Labs CBC & Chem 7: 12/18/21 04:00 12/17/21 05:39 Labs: Laboratory Results - last 24 hr 12/18/21 04:00 Hgb 9.2 L D Hct 29.2 L OB - PN A/P Plan day: 1 Plan: routine care Time Spent With Patient Time: Total time spent is greater than 50% in coordination of care (as documented) at patient's floor/unit and/or counseling patient: Time with patient: less than 15 minutes Review of Systems Review of Systems: All systems reviewed & are unremarkable except as noted in HPI and below Exam Const: General: no acute distress Eyes: General: appearance normal, both eyes and all related structures Neck: Neck: supple and no JVD Thyroid: thyroid normal Resp: Effort & Inspection: normal respiratory effort Auscultation: clear to auscultation bilaterally Cardio: Rate: regular rate Rhythm: regular rhythm GI: Inspection: non-distended GI Palp: Yes Soft to palpation, No Tenderness to palpation present (GI) and No Guarding due to palpation present (GI) Auscultation: normal bowel sounds : General: Yes bladder normal to palpation External Female Exam: normal external appearance Speculum Exam - Vagina: normal vaginal discharge and No vaginal bleeding Speculum Exam - Cervix: nontender Bimanual exam- vagina & uterus: bladder normal to palpation and No Cervical tenderness present OB/external & speculum: No vaginal bleeding Skin: General skin exam: no rashes or lesions noted Extrem: General: normal to inspection and no edema Psych: Mental Status: mental status grossly normal Affect: normal affect
[2021-12-18] MEDS: DOCUSATE SODIUM 100 MG CAPSULE PO ×2 (08:55→17:31)
[2021-12-18] MEDS: MULTIVIT/MIN/PREN/FOL AC/IRON TABLET 1 TAB PO (08:55)
[2021-12-18] MEDS: POLYSACCHARIDE IRON COMPLEX 150 MG CAPSULE PO ×2 (08:56→17:31)
--- NOTE | 2021-12-18 09:26 | WPDANLDPN2 ---
Anes-Prog Note L&D Date/Time: 12/18/21 09:26 Comfortable throughout: labor and delivery Neuraxial method: epidural Epidural/Spinal procedure site: clean & non-tender Neuro status: Neuro function grossly intact. Cardiovascular status: normal Respiratory status: normal Airway patency: baseline Mental status: baseline Post-Op hydration status: normal Vital Signs: Last Vital Signs Temp 36.6 C 12/18/21 04:00 Pulse 80 12/18/21 04:00 Resp 18 12/18/21 04:00 BP 100/56 L 12/18/21 04:00 Pulse Ox 100 12/17/21 08:25 Pain score (VAS): 0/10 I/O: Intake & Output 12/17/21 12/18/21 12/18/21 23:59 07:59 15:59 Intake Total 550 Output Total 303 Balance 247 Post-procedural complaints: none Patient feedback: Patient satisfied with anesthetic care.
[2021-12-18 11:33] VITALS: BP 102/67; PULSE 76; RESP 18; TEMP 36.6; O2SAT 100
--- NOTE | 2021-12-18 11:48 | PC.NURSE ---
1120- called out and said patient was in the bathroom and needed help. Upon entering the room, pt. was sitting on the toliet and said she felt like something was coming out her vagina. Upon assessment I could see a purplish blue balloon like object hanging out of the vagina, I assisted patient back to bed so I could better visualize the perineum and called for Jarek Grajeda RN for assistance. Once back in bed it appeared to be possibly the uterus hanging out of the vagina, I stayed with patient while Queta called Joe Lobato. She denied pain and there was no bleeding. Dr. Joe Lobato thinks it could be her cervix prolapsing and is not concerned at this time, he will be up to the floor shortly to assess the situation. Pt. will remain in bed till he arrives, the [employer] was used to discuss plan of care with pt.
[2021-12-18 11:51] LABS: Rapid Plasma Reagin Non-Reactive (NonReactive)
--- NOTE | 2021-12-18 13:13 | PC.NURSE ---
1135 1213 Introductions were made and consulted with patient to assess needs related to . Vp Clinical Research #[id number] assisted with education, questions/answers, resource folder in [place]. Mother led conversation with her experience with feeding baby so far and her decision to formula feed as well as breastfeed. Mother works well with her . Reviewed good handwashing when working with infant, breast, nipples and how to protect the nipples with a deep latch. Encouraged understanding the benefits of skin to skin, responding to feeding cues, frequencies of feeding 8-12 times in 24 hours (approximately 2-3 hours), duration of feedings, milk production, intake/output feeding sheet and signs of adequate intake. Discussed stimulating with skin to skin, hand expressing colostrum, touch and talking to infant to encourage eating at the breast. Reviewed positioning and alignment, supporting breast, off-centered (asymmetrical latch) and leading with the chin with big open wide gape. latched optimally to the left and right breast in football position. Education given to mother of how to visualize suck/swallow ratios and drinking at the breast. was able to maintain latch without discomfort to mother. Nipple care reviewed with optimal latching and good positioning. Resources used to facilitate learning were used from the [place] visual latch handout and [place] guide. Mother voiced understanding (through the commercial roofing estimator) responding to feeding cues, may need to stimulating infant approximately 2-3 hours from the start of the last feeding, calling for assistance if the infant does not latch or there discomfort . Reported to primary RN.
--- NOTE | 2021-12-18 14:30 | PC.NURSE ---
1315- Dr. Joe Lobato never came up to the floor, check in with patient and denies him coming to the floor also to assess the situation. Upon examination of the perineum the blueish purple balloon was now in the vaginal vault but the labia was spread open and you could still see it. There was a large clot noted on the racheal pad but no active bleeding. Patient complains of pain in her right lower abdomen. 1327:insurance underwriter sales pager paged [phone]- No one called back from the immigration paralegal page, so I called the office, office staff states that Joe Lobato has left for the day and they will contact Dr. Matthew. Dr. Matthew got on the phone and I told him about the patient and how Joe Lobato was going to come see her but did not and that I needed a DrConstance to come look at her. She is asking what is coming out of her vagina and I am unsure. He says that I should page Joe Lobato, I told him that the office staff said he is gone for the day and that Vipul is the immigration paralegal DR. He said that if she is not actively bleeding at this time then he will be up to the floor to see her when he has a break in his schedule. 1400- Dr. Matthew on the floor to assess pt. [employer] language line started so Vipul can communicate with patient, after hearing her concerns and how this happened he examined her and stated that it was her cervix that prolapsed not the uterus and that it may happen again just watch for excessive bleeding. Will continue to monitor bleeding and for prolapse again. Patient asking for pain meds.
[2021-12-18 15:15] VITALS: BP 101/68; PULSE 72; RESP 18; TEMP 36.9; O2SAT 100
[2021-12-18 19:30] VITALS: BP 95/52; PULSE 73; RESP 18; TEMP 36.8
[2021-12-19] VITALS (10 sets, daily range): BP systolic 92–114; BP diastolic 41–70; PULSE 64–95; RESP 15–23; TEMP 36.3–36.8; O2SAT 97–100
--- NOTE | 2021-12-19 07:44 | PM.OBPNVD ---
OB - PN: Subj Subjective Date/time seen: 12/19/21 07:44 Patient comments: no complaints and pain well controlled baby status: doing well OB - PN: Obj Data Labs CBC & Chem 7: 12/18/21 04:00 12/17/21 05:39 Labs: Laboratory Results - last 24 hr 12/17/21 05:39 RPR Non-reactive OB - PN A/P Plan day: 2 Plan: routine care and other (btl today) Time Spent With Patient Time: Total time spent is greater than 50% in coordination of care (as documented) at patient's floor/unit and/or counseling patient: Time with patient: less than 15 minutes Review of Systems Review of Systems: All systems reviewed & are unremarkable except as noted in HPI and below Exam Const: General: no acute distress Eyes: General: appearance normal, both eyes and all related structures Neck: Neck: supple and no JVD Thyroid: thyroid normal Resp: Effort & Inspection: normal respiratory effort Auscultation: clear to auscultation bilaterally Cardio: Rate: regular rate Rhythm: regular rhythm GI: Inspection: non-distended GI Palp: Yes Soft to palpation, No Tenderness to palpation present (GI) and No Guarding due to palpation present (GI) Auscultation: normal bowel sounds : General: Yes bladder normal to palpation External Female Exam: normal external appearance Speculum Exam - Vagina: normal vaginal discharge and No vaginal bleeding Speculum Exam - Cervix: nontender Bimanual exam- vagina & uterus: bladder normal to palpation and No Cervical tenderness present OB/external & speculum: No vaginal bleeding Skin: General skin exam: no rashes or lesions noted Extrem: General: normal to inspection and no edema Psych: Mental Status: mental status grossly normal Affect: normal affect
--- NOTE | 2021-12-19 07:45 | PM.DS ---
DS: Admitting Diagnosis Discharge Date Admitting Diagnosis postdates /desires permanent sterilization DS: Summary Hospital Course Hospital Course: the patient was admitted and underwent spontaneous vaginal delivery a group B strep prophylaxis. She underwent bilateral tubal ligation on postop day 2. She was up, voiding without difficulty, ambulating, generally without complaints. Time Spent with Patient Time attestation: Total time spent providing and/or coordinating discharge services: Exam Const: General: no acute distress Eyes: General: appearance normal, both eyes and all related structures Neck: Neck: supple and no JVD Thyroid: thyroid normal Resp: Effort & Inspection: normal respiratory effort Auscultation: clear to auscultation bilaterally Cardio: Rate: regular rate Rhythm: regular rhythm GI: Inspection: non-distended GI Palp: Yes Soft to palpation, No Tenderness to palpation present (GI) and No Guarding due to palpation present (GI) Auscultation: normal bowel sounds : General: Yes bladder normal to palpation External Female Exam: normal external appearance Speculum Exam - Vagina: normal vaginal discharge and No vaginal bleeding Speculum Exam - Cervix: nontender Bimanual exam- vagina & uterus: bladder normal to palpation and No Cervical tenderness present OB/external & speculum: No vaginal bleeding Skin: General skin exam: no rashes or lesions noted Extrem: General: normal to inspection and no edema Psych: Mental Status: mental status grossly normal Affect: normal affect DS: Data Data Completed and Pending Labs on day of discharge: Labs from last 24 hours 12/17/21 05:39 RPR Non-reactive Discharge Plan Discharge Attending physician on discharge: Dejan Persaud Discharging Clinician: Dejan Persaud Patient Disposition: Home, Self-Care Activity: may shower and pelvic rest Diet: heart healthy Wound Care Instructions: follow printed instructions Patient Instructions: Antibiotic Form Stand Alone Forms: General Discharge Information Follow-up/Referrals: Dejan Persaud MD [Physician] - Discharge Medications: New hydrocodone-acetaminophen 5-325 mg tablet 1 tablet PO Q4H PRN (Reason: pain) Qty: 20 RF: 0 Date of admission: 12/17/21 04:53 Primary Care Provider: ReubenRené Admitting Provider: Dejan Persaud Attending physician on admission: Dejan Persaud Condition: Stable
--- NOTE | 2021-12-19 08:47 | PC.NURSE ---
On 12/19/21, the student, Annemarie Olson, provided care and completed [facility] documentation on this patient. I have reviewed the student's documentation and agree with the findings.
[2021-12-19] MEDS: WITCH HAZEL 40 PADS 1 PAD TOPICAL (08:50)
[2021-12-19] MEDS: IBUPROFEN 600 MG TABLET PO ×2 (08:50→12:34)
[2021-12-19] MEDS: BENZOCAINE 20% AER SPR (*SP) 56 GM CAN 1 SPRAY TOPICAL ×2 (08:50→17:09)
--- NOTE | 2021-12-19 09:05 | PC.NURSE ---
Broacher used. [employer]. Elpidio RN from Pre-op explained to pt. information regarding tubal ligation. Pt. verbalized understanding. No questions or concerns voiced. Pt. to surgery per pt. bed.
--- NOTE | 2021-12-19 09:24 | P.PNAN_ITS ---
Anes - Initial Pre Proc Eval Procedure: Operation Date: 12/19/21 10:30 Proposed Procedures p Post- Tubal Ligation - Dejan Lobato MD Date/Time: 12/19/21 09:24 Surgeon: Dejan Lobato MD Pre Op Diagnosis: Induction of Labor Patient Data Age: 31 Gender: F Height: Weight: 113.5 kg Last Vital Signs Temp 36.7 C 12/19/21 08:00 Pulse 72 12/19/21 08:00 Resp 18 12/19/21 08:00 BP 106/41 L 12/19/21 08:00 Pulse Ox 100 12/19/21 08:00 Allergies Allergy/AdvReac Type Severity Reaction Status Date / Time No Known Allergies Allergy Unverified 07/13/16 02:59 Home Medications Medication Instructions Recorded Confirmed Type hydrocodone-acetaminophen 1 tablet PO Q4H PRN #20 tablet 12/19/21 Rx Laboratory Tests 12/17/21 05:39 RPR Non-reactive (NonReactive) Patient hx anesthesia problems: none Family hx anesthesia problems: none Results Review: All pre-operative results and documents have been reviewed as part of the pre-operative evaluation. [facility], [facility] Past Medical History Medical History Migraine Family History Family History Mother Hypertension Father Diabetes mellitus Sibling Breast cancer in female Sibling Breast cancer in female Social History Social History Smoking status: Never smoker Second hand tobacco smoke exposure: No Substance use: never Spiritual care concerns: No Anes - Eval Final PreProcedure Day of Procedure 12/19/21 09:24 Patient weight: obese Heart: regular rate and rhythm Lungs: clear to auscultation Airway: Mallampati scale class II Neurological: alert and oriented Last oral intake: >/= 8 hours ASA classification: II Emergent: no Anesthetic plan: proceed Anesthesia type and monitoring: general ETT and standard monitoring Results Review: All pre-operative results and documents have been reviewed as part of the pre-operative evaluation. Informed Consent: The patient's anesthetic plan and its attendant risks and benefits were discussed with the patient/family/POA. Questions were solicited and answers provided to the satisfaction of the patient/family/POA.
[2021-12-19] MEDS: LACTATED RINGERS 1,000 ML 30 ML IV CONT ×2 (09:32→11:33)
--- NOTE | 2021-12-19 10:11 | WPDHPUPDATE1 ---
History and Physical Update Update Date/Time: 12/19/21 10:11 History and Physical has been reviewed, including an updated exam of the patient. There are NO changes in the patient's condition. Risks, benefits, and alternatives have been discussed and questions answered. Patient agrees to proceed with procedure.
--- NOTE | 2021-12-19 10:48 | P.OP_ITS ---
Procedure Note - Detailed Date of Procedure 12/19/21 Pre-op Diagnosis Desires sterilization Post-op Diagnosis Same Procedure Performed bilateral tubal ligation Surgeon Dejan Lobato MD Anesthesia General Indications this is a 31-year-old multi postop the to vagin Findings al delivery normal-appearing uterus ovaries and tubes Description of Procedure the patient is prepped draped in the normal sterile fashion placed in the supine position. Underwent general endotracheal anesthesia removed infra will incision made in the abdomen entered through the fascia. Peritoneum was entered by sharp dissection the right fallopian tube was grasped a good knuckle of tube formed after traversing into the fimbriated end back to the midportion good knuckle of tube free from tied with 0 chromic full appears to peritoneum and free tied the distal and proximal legs these were then cut and passed the a portion passed off as portion of right fallopian tube. In like fashion low fallopian tube was grasped good knuckle of tube formed after traversing it to the fimbriated end and back to the midportion free tied with 0 chromic was undertaken by Sanaz and then piercing the perineum and free tied the distal and distal and proximal legs. The portion between cut and passed off as portion of left fallopian tube. Hemostasis was assured. The instruments were removed from the abdomen the fascia closed with continuous running 0 Vicryl lateral edge lateral edge the skin closed with 4 Monocryl and glue the patient was awakened. Blood loss estimated at5cc. All sponge, needle, instrument counts were c omplications Estimated Blood Loss 5 Drains No Packing No Pathology Yes Complications No immediate complications Condition Stable Disposition PACU
[2021-12-19] MEDS: fentaNYL CITRATE INJ (*CRX) 100 MCG/2 ML VIAL 25 MCG IV PUSH ×5 (11:06→12:06)
--- NOTE | 2021-12-19 11:47 | SUR.PHASEI ---
1146: Simple mask removed.
--- NOTE | 2021-12-19 12:25 | PC.NURSE ---
Pt. returned for PACU. Doing well. at side.
[2021-12-19] MEDS: SIMETHICONE 80 MG TAB.CHEW PO ×2 (12:35→17:10)
[2021-12-19] MEDS: oxyCODONE HCL (*CRX) 5 MG TAB IR PO (12:36)
[2021-12-19] MEDS: ACETAMINOPHEN 325 MG TABLET 650 MG PO (17:10)
[2021-12-19] MEDS: DOCUSATE SODIUM 100 MG CAPSULE PO (17:10)
--- NOTE | 2021-12-19 17:30 | PC.NURSE ---
1730: Pt. states that she went to restroom and felt more cervical prolapse come out . Called to room and visual inspection done at bedside with Pamela Stratton RN. Approx. 4cm. dark red bulged/sack noted coming from vagina.Pt. denies pain. No bleeding noted at this time. Dr. Joe Lobato notified and described to him per phone conversation. Instructed that pt. may continue with discharge process and follow up with him in 2 weeks while continuing rest and ice to perineum. Instructed to inform pt. that it may take 2-3 weeks for prolapse to resolve.
[2021-12-21 11:28] VITALS: BP 100/59; PULSE 102; RESP 20; TEMP 36.9; O2SAT 100
== END 2021-12-19 18:47 | disposition home or self-care (01) | DRG 541 ==
LOC: ANHLDR 05:07 → ANHOB2 22:00
PROVIDERS: Admitting Provider Obstetrics & Gynecology; PCP Registered Nurse; Visit Provider Obstetrics & Gynecology
PROC: 0UB70ZZ Excision of Bilateral Fallopian Tubes, Open Approach (ICD-10-PCS; CPT 58605; principal; 2021-12-19 10:30)
DX: O99.824 Streptococcus B carrier state complicating childbirth (principal); Z37.0 Single live birth; Z3A.40 40 weeks gestation of pregnancy; O36.8330 Maternal care for abnormalities of the fetal heart rate or rhythm, third trimester, not applicable or unspecified; Z30.2 Encounter for sterilization
CPT/HCPCS: 36415; 80053; 84550; 85014; 85018; 85025; 86592; 86850; 86900; 86901; 88302; A9270; J0290; J0330; J2250; J2590; J2704; J2795; J3010; J7120

== ENCOUNTER 2021-12-21 11:15 | Observation (INO) | payer OTHER, SELFPAY ==
[2021-12-21 11:15] VITALS: BP 100/59; PULSE 102; RESP 18; TEMP 36.9
--- NOTE | 2021-12-21 11:55 | PC.NURSE ---
Dr Car at bedside, exam performed. Membranes removed. Patient tolerated well. No active bleeding noted at this time. Precautions regarding fever, bleeding or abd pain discussed with patient. Ham Rolling Machine Operator used for instructions. No further orders at this time from MD. Patient ok to dc home.
--- NOTE | 2022-01-07 07:02 | PM.OBTRLD ---
OB - Triage/Final Diagnosis Visit Information Date of evaluation: 12/25/21 Reason for evaluation: other (retained placenta) Comments/Additional reasons for admission: I have assessed the risk for this patient, Rossi Sutton, and determined that she would benefit from observation care.
== END 2021-12-21 12:15 | disposition home or self-care (01) ==
PROVIDERS: Admitting Provider Obstetrics & Gynecology; PCP Registered Nurse; Visit Provider Obstetrics & Gynecology
DX: O72.0 Third-stage hemorrhage (principal)
CPT/HCPCS: G0378; G0379

== ENCOUNTER 2022-05-07 12:07 | Outpatient (CLI) | payer OTHER, SELFPAY ==
[2022-05-07 13:17] LABS: Hematocrit 31.2 % (37.0-47.0); Hemoglobin 9.1 g/dL (12.0-15.0)
== END 2022-05-07 12:08 | disposition home or self-care (01) ==
LOC: ANHSURGERY 12:11
PROVIDERS: PCP Registered Nurse; Visit Provider Obstetrics & Gynecology
DX: N93.9 Abnormal uterine and vaginal bleeding, unspecified (principal); Z01.818 Encounter for other preprocedural examination
CPT/HCPCS: 36415; 85014; 85018

== ENCOUNTER 2022-05-10 01:40 | Day surgery (SDC) | payer OTHER, SELFPAY ==
--- NOTE | 2022-05-06 18:22 | PM.IMHP ---
H&P: HPI History of Present Illness Date/Time: 05/06/22 18:22 Chief Complaint: Heavy vaginal bleeding Narrative: This is a 31-year-old female status post tubal ligation with multiple deliveries who is admitted for hysteroscopy dilatation curettage and endometrial ablation. This has been refractory to medical therapy. She understands risks and benefits to include but being not exclusive of , aspiration bleeding, transfusion perforation injury to bowel, bladder, ureters, or other internal organs with the need for laparotomy. She received the ACOG handout entitled hysteroscopy as well as dilatation and curettage respectively. She received the Marie handout and had all questions answered. She asked to proceed PMFSH Past Medical History Medical History Migraine Family History Family History Mother Hypertension Father Diabetes mellitus Sibling Breast cancer in female Sibling Breast cancer in female Social History Social History Smoking status: Never smoker Second hand tobacco smoke exposure: No Substance use: never Spiritual care concerns: No Meds Home Medications and Allergies Allergies Allergy/AdvReac Type Severity Reaction Status Date / Time No Known Allergies Allergy Unverified 07/13/16 02:59 Exam Const: General: cooperative, healthy appearing and comfortable Nutritional Appearance: average body habitus Orientation/consciousness: oriented to person, oriented to place and oriented to time Chest: Chest palpation & inspection: normal inspection of the chest Resp: Effort & Inspection: normal respiratory effort Cardio: Rate: regular rate Rhythm: regular rhythm GI: Inspection: normal to inspection : External Female Exam: normal external appearance Speculum Exam - Vagina: normal appearance of the vagina and vaginal bleeding Bimanual exam- vagina & uterus: enlarged Bimanual Exam- Adnexa, other: no masses Assessment and Plan Assessment and plan (1) Vaginal bleeding: Code(s): N93.9 - Abnormal uterine and vaginal bleeding, unspecified Status: Acute Plan Hysteroscopy/dilatation and curettage/Marie ablation
--- NOTE | 2022-05-07 12:39 | PC.NURSE ---
Report to the Outpatient Waiting Room, entrance under the green pavilion located off [facility], at time __1100 on date __05/10/22 . OR Time: __1 PM . - You and your visitor will be asked to self-screen and do not enter if you have any COVID symptoms. - Only one visitor and NO children visitors are allowed at this time. - The patient visitor is requested to leave or wait in car when not with patient due to restrictions. - A mask is required within the hospital. Patients may have clear liquids (water, carbonated beverages, clear teas, apple juice) until 3 hours prior to surgery (1000 AM) with a maximum of 20 ounces. - No food from midnight until time of surgery - Infants may have breast milk until 4 hours before surgery, formula 6 hours prior to surgery. - Children will be allowed to drink immediately following surgery. If applicable, please bring a bottle or sippy cup to assist with drinking. Juice, water, soda, and popsicles are readily available. For infants on formula, please bring formula the day of surgery. Pacifiers are allowed. Take the following medications with a SIP of water the morning of surgery: NONE Medications to discontinue per physician NONE Date to take last dose Please no make-up, nail albanian, hairspray, perfume, deodorant, or body powder the day of surgery. No jewelry (including any body piercings) or valuables the day of surgery, leave them at home. Please take a shower or bath the night before, or the morning of, surgery with an antibacterial soap. Wear comfortable, loose fitting clothing. Children are encouraged to wear pajamas. - Jewelry must be removed prior to entering the operating room. Rings and piercings that are not removed may be cut off. - The hospital will not accept responsibility for valuables. - Please leave all valuables, including medications, at home the day of surgery. If you are going home after surgery, a licensed truck driver heavy must drive you home. - NO public transportation without another adult. - We recommend that an adult stay with you for 24 hours following discharge. - We also recommend that you do not drive, make important decision, drink alcoholic beverages, or take any drugs that were not prescribed by your health care provider for at least 24 hours after your discharge time. For Pediatric surgeries, we recommend two adults accompany the child home (only one inside the building at this time). Follow any additional instructions given to you from your surgeon. If you or anyone in your household have experienced Covid symptoms in the past week, please notify your surgeon or the nurse liaison at the phone number below for possible testing. Telephone instructions given to ___PT & SO and asked if any additional questions and then verbalized understanding. Patient advised to call surgeon office or pre surgery nurse liaison [phone] if any additional questions.
[2022-05-07 12:44] VITALS: BMI 38.0
--- NOTE | 2022-05-09 09:36 | P.PNAN_ITS ---
Anes - Initial Pre Proc Eval Procedure: Operation Date: 05/10/22 12:00 Proposed Procedures p Hysteroscopy, Dilation and Curettage, Marie Endometrial Ablation - Dejan Lobato MD Date/Time: 05/09/22 09:36 Surgeon: Dejan Lobato MD Pre Op Diagnosis: heavy bleeding Patient Data Age: 31 Gender: F Height: 1.65 m Weight: 103.6 kg Allergies Allergy/AdvReac Type Severity Reaction Status Date / Time No Known Allergies Allergy Unverified 05/07/22 12:23 Home Medications Medication Instructions Recorded Confirmed Type ferrous sulfate 325 mg (65 mg 325 mg HS 05/07/22 05/10/22 History iron) tablet (FeroSul) hydrocodone 5 mg-acetaminophen 325 1 tablet PO Q4H PRN pain #30 tabs 05/10/22 Rx mg tablet Patient hx anesthesia problems: post op nausea/vomiting Family hx anesthesia problems: none Results Review: All pre-operative results and documents have been reviewed as part of the pre- operative evaluation. [facility] Past Medical History Medical History (Updated 05/09/22 @ 09:40 by Madhu Jose DO) Migraine PONV (postoperative nausea and vomiting) Surgical History Surgical History (Updated 05/09/22 @ 09:40 by Madhu Jose DO) History of cholecystectomy History of tubal ligation Family History Family History Mother Hypertension Father Diabetes mellitus Sibling Breast cancer in female Sibling Breast cancer in female Social History Social History Smoking status: Never smoker Second hand tobacco smoke exposure: No Alcohol intake: current Alcohol use details: STATES 4-5 DRINKS, 2-3 TIMES A MONTH Substance use: never Substance use type: does not use Living arrangements: with family Spiritual care concerns: No Anes - Eval Final PreProcedure Day of Procedure 05/09/22 09:36 Patient weight: obese Heart: regular rate and rhythm Lungs: clear to auscultation Airway: Mallampati scale class II Neurological: alert and oriented Last oral intake: >/= 8 hours ASA classification: II Emergent: no Anesthetic plan: proceed Anesthesia type and monitoring: general GIVS and standard monitoring Results Review: All pre-operative results and documents have been reviewed as part of the pre- operative evaluation. Informed Consent: The patient's anesthetic plan and its attendant risks and benefits were discussed with the patient/family/POA. Questions were solicited and answers provided to the satisfaction of the patient/family/POA.
--- NOTE | 2022-05-10 04:40 | WPDHPUPDATE1 ---
History and Physical Update Update Date/Time: 05/10/22 04:40 History and Physical has been reviewed, including an updated exam of the patient. There are NO changes in the patient's condition. Risks, benefits, and alternatives have been discussed and questions answered. Patient agrees to proceed with procedure.
[2022-05-10 10:01] VITALS: BP 99/68; PULSE 66; RESP 20; TEMP 36.4; O2SAT 100
[2022-05-10] MEDS: ACETAMINOPHEN 500 MG TABLET 1000 MG PO (10:01)
[2022-05-10] MEDS: LACTATED RINGERS 1,000 ML 30 ML IV CONT ×2 (10:20→12:32)
[2022-05-10] MEDS: LIDOCAINE 1% BUFFERED WITH 8.4% SODIUM BICARB 1 ML SYRINGE 30 ML INFILTRATE (11:34)
--- NOTE | 2022-05-10 11:43 | P.OP_ITS ---
Procedure Note - Detailed Date of Procedure 05/10/22 Pre-op Diagnosis heavy bleeding Post-op Diagnosis Same Procedure Performed Hysteroscopy/dilatation and curettage/Marie ablation Surgeon Dejan Lobato MD Anesthesia MAC and Local Indications This is a 31-year-old female status post tubal ligation with heavy bleeding resulting in anemia which has been refractory to medical therapy Findings Uterus sounded to10.5cm. Thick irregular endometrial tissue was seen. Description of Procedure Patient was prepped draped in the normal sterile fashion placed in the dorsal lithotomy position. Under excellent IV sedation weighted speculum placed in posterior fornix of vagina. Anterior lip of the cervix grasped with a single- tooth tenaculum. 2.5cc 1% xylocaine anesthesia placed at 2, 4, 8, 10:00 a.m. of the cervix. Uterus sounded to10.5cm. Serial dilatation with fragmented dilators performed. This was followed by passage of the 5mm visualizing hysteroscope using normal saline at as visualizing medium. Thick irregular endometrial tissue could be seen with each fallopian tube os seen. The uterus was then scraped over the entire 360? until a grating sound was heard when no further tissue removed these instruments were withdrawn. The Marie instrument was placed in the uterus at the appropriate settings and burned for 120seconds. This was then removed and this hysteroscope replaced a good burn was seen throughout. The patient tolerated the procedure well. All sponge, needle, instrument counts were correct. There were no immediate complications Estimated Blood Loss 25 Drains No Packing No Pathology Yes Complications No immediate complications Condition Stable Disposition PACU
[2022-05-10 11:46] VITALS: BP 86/37; PULSE 82; RESP 14; O2SAT 100
[2022-05-10 12:15] VITALS: BP 101/59; PULSE 56; RESP 14; O2SAT 100
[2022-05-10 12:45] VITALS: BP 111/46; PULSE 73; RESP 14
[2022-05-10] MEDS: oxyCODONE HCL (*CRX) 5 MG TAB IR PO (12:50)
[2022-05-10 13:15] VITALS: BP 100/53; PULSE 63; RESP 14
== END 2022-05-10 13:45 | disposition home or self-care (01) ==
PROVIDERS: PCP Registered Nurse; Visit Provider Obstetrics & Gynecology
PROC: 0U5B8ZZ Destruction of Endometrium, Via Natural or Artificial Opening Endoscopic (ICD-10-PCS; CPT 58563; principal; 2022-05-10 12:00)
DX: N93.9 Abnormal uterine and vaginal bleeding, unspecified (principal)
CPT/HCPCS: 58563; 88305; A9270; J2250; J2405; J2704; J3010; J7120